=== PATIENT | female | born 1995 | race Caucasian/White ===

== ENCOUNTER 2016-12-01 17:54 | Emergency (ER) | payer BC ==
[2016-12-01 17:59] VITALS: BP 126/84
[2016-12-01] MEDS ORDERED: Ondansetron INJ* 2 MG/ML VIAL IV ONE (19:30)
[2016-12-01] MEDS ORDERED: Ketorolac INJ* 30 MG/ML 1 ML VIAL IV ONE (19:30)
[2016-12-01] MEDS ORDERED: NS 0.9% 1000 ML* 2,000 ML IV ONE (19:30)
[2016-12-01 20:16] LABS: Hematocrit 48 % (35-47); Hemoglobin 16.3 g/dl (12.0-16.0); Mean Corpuscular HGB Conc 34 g/dl (31-36); Mean Corpuscular Hemoglobin 29 pg (27-31); Mean Corpuscular Volume 86 fL (80-97); Mean Platelet Volume 9 um3 (7.4-10.4); Red Blood Count 5.54 10^6/ul (4.0-5.4); Red Cell Distribution Width 12 % (10.5-15); White Blood Count 8.2 10^3/ul (3.5-10.8)
[2016-12-01 20:31] LABS: Albumin 4.1 g/dL (3.2-5.2); BUN/Creatinine Ratio 18.2 (8-20); C Reactive Protein 21.65 mg/L (< 5.00); Calcium 9.5 mg/dL (8.6-10.3); EGFR African American 146.8 (>60); EGFR Non-African American 114.2 (>60); Potassium 3.3 mmol/L (3.5-5.0); Total Protein 7.1 g/dL (6.4-8.9)
[2016-12-01 20:43] LABS: Manual Entry Verification DOM0004; Mono Internal Control QC Line Present
--- NOTE | 2016-12-31 09:20 | ED ---
Influenza-Like Illness - HPI Summary HPI Summary: Patient presents with nausea and vomiting since 0200 this morning. She did not eat any new or different foods last night. She denies fever, chills, GAO, diarrhea or constipation. She was seen at [place] and referred to the ED for further evaluation. She denies abdominal pain. - History of Current Complaint Chief Complaint: EDNauseaVomitDiarrh Time Seen by Provider: 12/01/16 19:22 Hx Obtained From: Patient Onset/Duration: Sudden Onset Severity: Severe Associated Signs & Symptoms: Vomiting Related Hx: Possible Flu/Infectious Exposure - Allergy/Home Medications Allergies/Adverse Reactions: Allergies Allergy/AdvReac Type Severity Reaction Status Date / Time Ciprofloxacin Allergy Muscle Ache Verified 12/01/16 17:59 Hydromorphone [From Dilaudid] Allergy Hallucinati Verified 12/01/16 17:59 ons Levofloxacin [From Levaquin] Allergy Muscle Ache Verified 12/01/16 17:59 PMH/Surg Hx/FS Hx/Imm Hx Previously Healthy: Yes Infectious Disease History: No Infectious Disease History: Denies: Traveled Outside the [place] in Last 30 Days - Family History Known Family History: Positive: None - Social History Occupation: Student Lives: With Family Alcohol Use: None Substance Use Type: Reports: None Smoking Status (MU): Former Smoker Review of Systems Negative: Fever, Chills Negative: Chest Pain Negative: Shortness Of Breath Positive: Vomiting, Nausea. Negative: Diarrhea Negative: Myalgia Negative: Headache All Other Systems Reviewed And Are Negative: Yes Physical Exam Triage Information Reviewed: Yes Vital Signs On Initial Exam: Initial Vitals Temp Pulse Resp BP Pulse Ox 99.9 F 94 18 126/84 100 12/01/16 17:56 12/01/16 17:56 12/01/16 17:56 12/01/16 17:56 12/01/16 17:56 Vital Signs Reviewed: Yes Appearance: Positive: Well-Appearing, No Pain Distress, Well-Nourished Skin: Positive: Warm, Skin Color Reflects Adequate Perfusion, Dry, Soft Head/Face: Positive: Normal Head/Face Inspection Eyes: Positive: EOMI, SHERIDAN, Conjunctiva Clear ENT: Positive: Hearing grossly normal, Pharynx normal, TMs normal. Negative: Pharyngeal erythema, Nasal congestion, Tonsillar swelling Neck: Positive: Supple, Nontender, No Lymphadenopathy Respiratory/Lung Sounds: Positive: Clear to Auscultation, Breath Sounds Present Cardiovascular: Positive: RRR Abdomen Description: Positive: Nontender, Soft. Negative: CVA Tenderness (R), CVA Tenderness (L), Distended, Guarding Bowel Sounds: Positive: Present Musculoskeletal: Negative: Edema Left, Edema Right Neurological: Positive: Sensory/Motor Intact, Alert, Oriented to Person Place, Time, NV Bundle Intact Distally, Normal Gait Psychiatric: Positive: Affect/Mood Appropriate AVPU Assessment: Alert - Jai Coma Scale Coma Scale Total: 15 Diagnostics - Vital Signs Vital Signs Temp Pulse Resp BP Pulse Ox 12/01/16 22:16 98.9 F 70 16 12/01/16 20:53 99.7 F 12/01/16 20:13 101.3 F 78 16 98 12/01/16 17:56 99.9 F 94 18 126/84 100 - Laboratory Lab Results: Lab Results 12/01/16 12/01/16 12/01/16 Range/Units 20:00 20:00 20:19 WBC 8.2 (3.5-10.8) 10^3/ul RBC 5.54 H (4.0-5.4) 10^6/ul Hgb 16.3 H (12.0-16.0) g/dl Hct 48 H (35-47) % MCV 86 (80-97) fL MCH 29 (27-31) pg MCHC 34 (31-36) g/dl RDW 12 (10.5-15) % Plt Count 197 (150-450) 10^3/ul MPV 9 (7.4-10.4) um3 Neut % (Auto) 79.5 (38-83) % Lymph % (Auto) 11.2 L (25-47) % Kings % (Auto) 9.1 H (1-9) % Eos % (Auto) 0.1 (0-6) % Baso % (Auto) 0.1 (0-2) % Absolute Neuts (auto) 6.5 (1.5-7.7) 10^3/ul Absolute Lymphs (auto) 0.9 L (1.0-4.8) 10^3/ul Absolute Monos (auto) 0.7 (0-0.8) 10^3/ul Absolute Eos (auto) 0 (0-0.6) 10^3/ul Absolute Basos (auto) 0 (0-0.2) 10^3/ul Absolute Nucleated RBC 0.01 10^3/ul Nucleated RBC % 0.1 Sodium 135 (133-145) mmol/L Potassium 3.3 L (3.5-5.0) mmol/L Chloride 103 (101-111) mmol/L Carbon Dioxide 25 (22-32) mmol/L Anion Gap 7 (2-11) mmol/L BUN 12 (6-24) mg/dL Creatinine 0.66 (0.51-0.95) mg/dL Est GFR ( Amer) 146.8 (>60) Est GFR (Non-Af Amer) 114.2 (>60) BUN/Creatinine Ratio 18.2 (8-20) Glucose 89 (70-100) mg/dL Calcium 9.5 (8.6-10.3) mg/dL Total Bilirubin 1.00 (0.2-1.0) mg/dL AST 16 (13-39) U/L ALT 13 (7-52) U/L Alkaline Phosphatase 65 (34-104) U/L C-Reactive Protein 21.65 H (< 5.00) mg/L Total Protein 7.1 (6.4-8.9) g/dL Albumin 4.1 (3.2-5.2) g/dL Globulin 3.0 (2-4) g/dL Albumin/Globulin Ratio 1.4 (1-3) Monoscreen Negative (Negative) Influenza A (Rapid) Negative (Negative) Influenza B (Rapid) Negative (Negative) Result Diagrams: 12/01/16 20:00 12/01/16 20:00 Lab Statement: Any lab studies that have been ordered have been reviewed, and results considered in the medical decision making process. Flu Symptom Course/Dx - Diagnoses Differential Diagnosis/HQI/PQRI: Positive: Bronchitis, Influenza, Pneumonia, Upper Respiratory Infection Provider Diagnoses: Gastroenteritis Discharge - Discharge Plan Condition: Stable Disposition: HOME Prescriptions: Ibuprofen TAB* [Motrin TAB* 600 MG] 600 mg PO Q6H PRN #20 tab PRN Reason: Nausea Ondansetron ODT TAB* [Zofran 4 MG Odt TAB*] 4 mg PO Q6H PRN #20 tab.odt PRN Reason: Nausea Ondansetron TAB* [Zofran 4 MG Tab*] 4 mg PO Q6H PRN #10 tab PRN Reason: Nausea Patient Education Materials: Gastroenteritis (ED) Forms: *School Release Referrals: DEMAR He [Primary Care Provider] - Additional Instructions: Please use the anti-nausea medication to allow you to drink and eat. Drink extra fluids to stay hydrated. You can begin using Ibuprofen 600mg three times daily with meals tomorrow evening, since you were given Toradol today. The ibuprofen should help keep your fever down. You can add Tylenol to the ibuprofen to help decrease your fever as well. Follow up with Jacqueline in 2-3 days if your symptoms are not beginning to improve. Return to the emergency department if your symptoms worsen.
== END 2016-12-01 22:16 | disposition home or self-care (01) ==
LOC: ED 17:54
DX: K52.9 Noninfective gastroenteritis and colitis, unspecified (principal); R11.2 Nausea with vomiting, unspecified
CPT/HCPCS: 36415; 80053; 85025; 86140; 86308; 87502; 96374; 96375; 99282; J1885; J2405

== ENCOUNTER 2017-09-04 14:31 | Emergency (ER) | payer BC ==
[2017-09-04] MEDS ORDERED: NS 0.9% 1000 ML* 2,000 ML IV ONE (16:04)
[2017-09-04 16:25] LABS: Hematocrit 44 % (35-47); Hemoglobin 15.7 g/dl (12.0-16.0); Mean Corpuscular HGB Conc 36 g/dl (31-36); Mean Corpuscular Hemoglobin 32 pg (27-31); Mean Corpuscular Volume 88 fL (80-97); Mean Platelet Volume 9 um3 (7.4-10.4); Red Blood Count 4.99 10^6/ul (4.0-5.4); Red Cell Distribution Width 13 % (10.5-15); White Blood Count 7.9 10^3/ul (3.5-10.8)
[2017-09-04 16:26] LABS: Comments Flag Yes
[2017-09-04 16:43] LABS: ALT 12 U/L (7-52); AST 16 U/L (13-39); Albumin 4.5 g/dL (3.2-5.2); Alkaline Phosphatase 54 U/L (34-104); Anion Gap 6 mmol/L (2-11); BUN/Creatinine Ratio 18.6 (8-20); Blood Urea Nitrogen 13 mg/dL (6-24); C Reactive Protein < 1.00 mg/L (< 5.00); CO2 Carbon Dioxide 26 mmol/L (22-32); Chloride 104 mmol/L (101-111); EGFR African American 135.8 (>60); EGFR Non-African American 105.6 (>60); Globulin 2.9 g/dL (2-4); Glucose 81 mg/dL (70-100); Potassium 3.6 mmol/L (3.5-5.0); Sodium 136 mmol/L (133-145); Total Protein 7.4 g/dL (6.4-8.9)
--- NOTE | 2017-09-04 18:21 | RAD ---
Indication: 3 months vaginal bleeding. Pelvic cramping. Comparison: No relevant prior exams available on the [facility] for comparison. Technique: Transabdominal pelvic ultrasound. Report: 8.5 x 2.9 x 4.0 cm anteverted uterus. 7.9 mm endometrium with suggestion of a potential hyperechoic endometrial polyp measuring up to 0.3 x 1.1 x 0.6 cm. Negative for free pelvic fluid. Unremarkable 3.0 x 1.6 x 2.7 cm RIGHT ovary and 3.8 x 1.5 x 2.2 cm LEFT ovary with documented vascular flow. No visualized extra ovarian adnexal region lesions evident. IMPRESSION: The imaging findings are concerning for a potential small endometrial polyp given the clinical context.
[2017-09-04 19:21] LABS: Urine Bacteria Absent (Absent); Urine Bilirubin Negative (Negative); Urine Glucose Negative (Negative); Urine Nitrite Negative (Negative)
[2017-09-04 19:40] VITALS: BP 121/72
--- NOTE | 2017-09-13 14:48 | ED ---
Boris Adamson Alfonso, scribed for Seferino Lyman MD on 09/04/17 at 1603 . GI/ HPI - HPI Summary HPI Summary: This patient is a 21 year old F presenting to [facility] with a chief complaint of heaving mensural bleeding since 3.5 months ago, worse since last night. She has been using 1 pad per hour. She has been taking Premarin for the past 1.5 months. The patient rates the pain 3/10 in severity. Symptoms aggravated and alleviated by nothing. Patient reports abdominal cramping. Patient denies vaginal blood clotting. - History of Current Complaint Chief Complaint: EDBleedingDisorder Time Seen by Provider: 09/04/17 15:53 Stated Complaint: PROLONGED/HEAVY MENSTRUAL BLEEDING Hx Obtained From: Patient Onset/Duration: Started Weeks Ago - 3.5 months, Worse Since - last night Timing: Constant Pain Intensity: 3 - /10 Associated Signs and Symptoms: Positive: Other: - abdominal cramping. Patient denies vaginal blood clotting. 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 Positive: other - heaving mensural bleeding; negative vaginal blood clotting. All Other Systems Reviewed And Are Negative: Yes Physical Exam - Summary Physical Exam Summary: VITAL SIGNS: Reviewed. GENERAL: Patient is a well-developed and nourished female who is lying comfortable in the stretcher. Patient is not in any acute respiratory distress. HEAD AND FACE: No signs of trauma. No ecchymosis, hematomas or skull depressions. No sinus tenderness. EYES: PERRLA, EOMI x 2, No injected conjunctiva, no nystagmus. EARS: Hearing grossly intact. Ear canals and tympanic membranes are within normal limits. MOUTH: Oropharynx within normal limits. NECK: Supple, trachea is midline, no adenopathy, no JVD, no carotid bruit, no c- spine tenderness, neck with full ROM. CHEST: Symmetric, no tenderness at palpation LUNGS: Clear to auscultation bilaterally. No wheezing or crackles. CVS: Regular rate and rhythm, S1 and S2 present, no murmurs or gallops appreciated. ABDOMEN: Soft, non-tender. No signs of distention. No rebound no guarding, and no masses palpated. Bowel sounds are normal. EXTREMITIES: FROM in all major joints, no edema, no cyanosis or clubbing. NEURO: Alert and oriented x 3. No acute neurological deficits. Speech is normal and follows commands. SKIN: Dry and warm Triage Information Reviewed: Yes Vital Signs On Initial Exam: Initial Vitals Temp Pulse Resp BP Pulse Ox 98 F 74 16 134/86 99 09/04/17 14:38 09/04/17 14:38 09/04/17 14:38 09/04/17 14:38 09/04/17 14:38 Vital Signs Reviewed: Yes Diagnostics - Vital Signs Vital Signs Temp Pulse Resp BP Pulse Ox 09/04/17 14:38 98 F 74 16 134/86 99 - Laboratory Result Diagrams: 09/04/17 16:16 09/04/17 16:16 Lab Statement: Any lab studies that have been ordered have been reviewed, and results considered in the medical decision making process. - Additional Comments Diagnostic Additional Comments: US Pelvic reveals, per radiologist, The imaging findings are concerning for a potential small endometrial polyp given the clinical context. ED physician has reviewed this radiology report. GIGU Course/Dx - Course Assessment/Plan: This patient is a 21 year old F presenting to [facility] with a chief complaint of heaving mensural bleeding since 3.5 months ago, worse since last night. She has been using 1 pad per hour. She has been taking Premarin for the past 1.5 months. The patient rates the pain 3/10 in severity. Symptoms aggravated and alleviated by nothing. Patient reports abdominal cramping. Patient denies vaginal blood clotting. US Pelvic reveals, per radiologist, The imaging findings are concerning for a potential small endometrial polyp given the clinical context. ED physician has reviewed this radiology report. Test results with no significant abnormalities. I discussed the case with Dr. Peterson (OBGYN) at 1856 who recommended discharge and outpatient follow up. Patient will be discharged with follow up from Dr. Shin. The patient is agreeable with this plan. The patient is hemodynamically stable, alert and oriented x3. - Diagnoses Provider Diagnoses: Dysmenorrhea - Physician Notifications Discussed Care Of Patient With: Ethan Shin Time Discussed With Above Provider: 18:56 Instructed by Provider To: Other - I discussed the case with Dr. Shin (OBGYN) at 185 who recommended discharge and outpatient follow up. Discharge - Discharge Plan Condition: Stable Disposition: HOME Patient Education Materials: Dysmenorrhea (ED) Forms: *School Release Referrals: Isai Ortiz MD [Primary Care Provider] - Ethan Shin MD [Medical Doctor] - Additional Instructions: RETURN TO THE EMERGENCY DEPARTMENT FOR CHANGING OR WORSENING SYMPTOMS. The documentation as recorded by the Boris floyd Alfonso accurately reflects the service I personally performed and the decisions made by me, Seferino Lyman MD.
== END 2017-09-04 19:39 | disposition home or self-care (01) ==
LOC: ED 14:31
DX: N94.6 Dysmenorrhea, unspecified (principal); R10.9 Unspecified abdominal pain
CPT/HCPCS: 36415; 76856; 80053; 81003; 81015; 84702; 85025; 85730; 86140; 96360; 99283